=== PATIENT | female | born 1950 | race Caucasian/White ===

== ENCOUNTER 2016-06-16 08:34 | Inpatient (IN) | payer MEDICARE ==
[~2016-06-16] VITALS: Ht 152.4 cm; Wt 81.1 kg
[2016-06-16] MEDS ORDERED: LEVOFLOXACIN/PMX 750MG/150ML 150 ML IVPB ONE (09:00)
[2016-06-16] MEDS ORDERED: methylPREDNISolone SOD SUCC 125 MG/2 ML IVP ONE (09:00)
[2016-06-16] MEDS ORDERED: SODIUM CHLORIDE FLUSH 10ML SYR IVF ONE (09:00)
[2016-06-16] MEDS ORDERED: ACETAMINOPHEN 500 MG TABLET PO ONE (09:00)
[2016-06-16] MEDS ORDERED: LEVOFLOXACIN/PMX 750MG/150ML 150 ML ONE (09:07)
[2016-06-16] MEDS ORDERED: ACETAMINOPHEN 500 MG TABLET ONE (09:07)
[2016-06-16] MEDS ORDERED: methylPREDNISolone SOD SUCC 125 MG/2 ML ONE (09:07)
[2016-06-16] MEDS ORDERED: ALBUTEROL/IPRATROPIUM 2.5MG/0.5MG, 3 ML ONE (09:10)
[2016-06-16 09:18] LABS: HEMOGLOBIN 13.2 g/dL (11.7-16.4)
[2016-06-16 09:34] LABS: BLOOD UREA NITROGEN 10 mg/dL (7-18)
[2016-06-16 09:39] LABS: ASPARTATE AMINO TRANSFERASE 14 U/L (15-37)
[2016-06-16 09:40] LABS: IS PT STATUS REG ER OR PRE ER? YES
[2016-06-16] MEDS ORDERED: ASPI-496 PO (09:47)
[2016-06-16] MEDS ORDERED: AMLO2.5T PO (09:47)
[2016-06-16] MEDS ORDERED: BUDE10.2 IH (09:47)
[2016-06-16] MEDS ORDERED: IPRA12.9 INH (09:47)
[2016-06-16] MEDS ORDERED: ALBU8.5H3 INH (09:47)
[2016-06-16 09:58] LABS: DIFF TOTAL CELLS COUNTED 100 CELL DIFF
[2016-06-16 09:59] LABS: VERIFY COUNTS? YES
[2016-06-16] MEDS: ALBUTEROL/IPRATROPIUM 2.5MG/0.5MG, 3 ML NPPB PRN (12:47)
[2016-06-16 13:07] VITALS: BP 107/65
[2016-06-16] MEDS ORDERED: ACETAMINOPHEN 325 MG TABLET PO PRN (13:30)
[2016-06-16] MEDS ORDERED: LEVOFLOXACIN/PMX 750MG/150ML 150 ML IV SCH (13:30)
[2016-06-16] MEDS ORDERED: ONDANSETRON 2MG/ML, 2ML IVPB PRN (13:30)
[2016-06-16] MEDS ORDERED: PHARMACY MAY ADJ FOR RENAL FX MC PRN (13:30)
[2016-06-16] MEDS: HEPARIN 5,000 UNITS/ML, 1ML INJ SCH ×2 (13:30→20:48)
[2016-06-16] MEDS: ALBUTEROL/IPRATROPIUM 2.5MG/0.5MG, 3 ML NPPB SCH ×3 (14:00→22:50)
[2016-06-16] MEDS: SODIUM CHLORIDE 0.9% 1,000 ML IV SCH ×2 (15:17→20:58)
[2016-06-16] MEDS: FAMOTIDINE 20 MG TABLET PO SCH (15:19)
[2016-06-16 18:30] VITALS: BP 128/73
[2016-06-16 21:49] LABS: RAPID INFLUENZA A Negative (Negative); RAPID INFLUENZA B Negative (Negative)
[2016-06-17] MEDS: ALBUTEROL/IPRATROPIUM 2.5MG/0.5MG, 3 ML NPPB PRN (00:27)
[2016-06-17 01:23] VITALS: BP 121/71
[2016-06-17] MEDS: ALBUTEROL/IPRATROPIUM 2.5MG/0.5MG, 3 ML NPPB SCH ×6 (03:15→22:57)
[2016-06-17] MEDS: SODIUM CHLORIDE 0.9% 1,000 ML IV SCH ×2 (03:52→10:50)
[2016-06-17 05:15] LABS: HEMOGLOBIN 10.9 g/dL (11.7-16.4)
[2016-06-17 05:25] LABS: BLOOD UREA NITROGEN 8 mg/dL (7-18)
[2016-06-17] MEDS: HEPARIN 5,000 UNITS/ML, 1ML INJ SCH ×3 (05:25→20:57)
[2016-06-17 07:10] VITALS: BP 142/80
[2016-06-17] MEDS: ASPIRIN 81 MG TABLET EC PO SCH (08:39)
[2016-06-17] MEDS: AMLODIPINE 2.5 MG TABLET PO SCH (08:40)
[2016-06-17] MEDS: FAMOTIDINE 20 MG TABLET PO SCH ×2 (08:40→21:07)
[2016-06-17 13:31] VITALS: BP 118/69
[2016-06-17 20:00] VITALS: BP 116/68
[2016-06-18 01:28] VITALS: BP 129/66
[2016-06-18] MEDS: HEPARIN 5,000 UNITS/ML, 1ML INJ SCH ×2 (05:15→13:30)
[2016-06-18] MEDS: ALBUTEROL/IPRATROPIUM 2.5MG/0.5MG, 3 ML NPPB SCH ×3 (05:22→14:00)
[2016-06-18 05:49] LABS: HEMOGLOBIN 11.8 g/dL (11.7-16.4)
[2016-06-18 06:14] LABS: ASPARTATE AMINO TRANSFERASE 12 U/L (15-37); BLOOD UREA NITROGEN 7 mg/dL (7-18)
[2016-06-18 07:09] VITALS: BP 116/67
[2016-06-18] MEDS: AMLODIPINE 2.5 MG TABLET PO SCH (08:23)
[2016-06-18] MEDS: FAMOTIDINE 20 MG TABLET PO SCH (08:24)
[2016-06-18] MEDS: ASPIRIN 81 MG TABLET EC PO SCH (08:24)
[2016-06-18] MEDS ORDERED: LEVOFLOXACIN/PMX 750MG/150ML 150 ML IV SCH (09:00)
[2016-06-18] MEDS ORDERED: LEVO500T33 PO (13:14)
[2016-06-18] MEDS ORDERED: SODIUM CHLORIDE 0.9% 1,000 ML IV SCH (13:14)
[2016-06-18] MEDS ORDERED: PRED20TA PO (13:14)
[2016-06-18 13:59] VITALS: BP 138/81
== END 2016-06-18 15:14 | disposition home or self-care (01) | DRG 871 ==
LOC: ED 09:54 → EDIP 09:55 → ED 10:16 → 4WST 12:01 → DCLOUNGE 06-18 15:05
PROVIDERS: ATTEND Internal Medicine
DX: A41.9 Sepsis, unspecified organism (principal); J96.21 Acute and chronic respiratory failure with hypoxia; J15.9 Unspecified bacterial pneumonia; J44.0 Chronic obstructive pulmonary disease with (acute) lower respiratory infection; I10 Essential (primary) hypertension; F17.210 Nicotine dependence, cigarettes, uncomplicated; Z99.81 Dependence on supplemental oxygen
CPT/HCPCS: 36415; 71010; 80048; 80053; 83605; 83880; 84145; 84484; 85025; 85610; 87040; 87400; 93005; 94640; 96365; 96375; J1956; J7620; J2930; J7030; J7512

== ENCOUNTER 2017-02-05 10:42 | Inpatient (IN) | payer MEDICARE ==
[~2017-02-05] VITALS: Ht 152.4 cm; Wt 58.1 kg
[~2017-02-05 10:42] MED LIST: ALBU8.5H8 INH; AMLO2.5T PO; ASPI-496 PO; BUDE10.2 IH; IPRA12.9 INH; LEVO500T47 PO; PRED20TA PO
[2017-02-05] MEDS ORDERED: methylPREDNISolone SOD SUCC 125 MG/2 ML ONE (11:08)
[2017-02-05 11:30] LABS: BLOOD UREA NITROGEN 4 mg/dL (7-18)
[2017-02-05] MEDS ORDERED: methylPREDNISolone SOD SUCC 125 MG/2 ML IVP ONE (11:30)
[2017-02-05] MEDS ORDERED: SODIUM CHLORIDE FLUSH 10ML SYR IVF ONE (11:30)
[2017-02-05 11:35] LABS: ASPARTATE AMINO TRANSFERASE 15 U/L (15-37)
[2017-02-05 11:36] LABS: IS PT STATUS REG ER OR PRE ER? YES
[2017-02-05 11:38] LABS: HEMATOCRIT 38.1 % (34.6-47.8); HEMOGLOBIN 12.5 g/dL (11.7-16.4); WHITE BLOOD COUNT 3.8 x10^3/uL (3.4-10)
[2017-02-05] MEDS ORDERED: ALBUTEROL/IPRATROPIUM 2.5MG/0.5MG, 3 ML ONE (11:57)
[2017-02-05] MEDS ORDERED: MAGNESIUM SULFATE 1 GM in SODIUM CHLORIDE 0.9% 50 ML IV ONE (12:00)
[2017-02-05] MEDS ORDERED: ALBUTEROL/IPRATROPIUM 2.5MG/0.5MG, 3 ML NEB ONE (12:30)
[2017-02-05] MEDS ORDERED: HYDROcodone/APAP 5/325 TABLET PO PRN (13:00)
[2017-02-05] MEDS ORDERED: DOCUSATE 100 MG CAPSULE PO PRN (13:00)
[2017-02-05] MEDS ORDERED: morphine SULFATE 10 MG/ML, 1ML IVPush PRN (13:00)
[2017-02-05] MEDS ORDERED: TEMPLATE NON-FORMULARY MED. (Albuterol Sulfate (Proair Hfa) 2 PUFF(S)) INH PRN (13:00)
[2017-02-05] MEDS ORDERED: ONDANSETRON 2MG/ML, 2ML IVPush PRN (13:00)
[2017-02-05] MEDS ORDERED: IPRATROPIUM BROMIDE INH SCH (13:00)
[2017-02-05] MEDS ORDERED: GUAIFENESIN/DM 200-20MG, 10ML UDC PO PRN (13:00)
[2017-02-05] MEDS: methylPREDNISolone SOD SUCC 125 MG/2 ML IVPush SCH ×2 (13:00→21:21)
[2017-02-05] MEDS ORDERED: POLYETHYLENE GLYCOL 17 GM PACKET PO PRN (13:00)
[2017-02-05] MEDS ORDERED: LORazepam 1MG TABLET PO PRN (13:00)
[2017-02-05] MEDS: NICOTINE 7 MG/24 HR PATCH.TD24 TD SCH (13:00)
[2017-02-05] MEDS ORDERED: ACETAMINOPHEN 325 MG TABLET PO PRN (13:00)
[2017-02-05 14:00] VITALS: BP 151/69
[2017-02-05] MEDS: ALBUTEROL/IPRATROPIUM 2.5MG/0.5MG, 3 ML NPPB SCH ×3 (14:00→22:00)
[2017-02-05] MEDS ORDERED: FLU VACC QS2017-18 (36MOS+) UP/PF 0.5 ML IM-VACC ONE (16:30)
[2017-02-05] MEDS: CEFTRIAXONE PMX 1GM/50ML 50 ML IV SCH (17:00)
[2017-02-05] MEDS: ENOXAPARIN 40 MG/0.4 ML SQ SCH (17:00)
[2017-02-05 19:13] VITALS: BP 116/67
[2017-02-05] MEDS: TEMPLATE NON-FORMULARY MED. (Budesonide/Formoterol Fumarate (Symbicort 160-4.5 Mcg Inhaler IH SCH (21:00)
[2017-02-05] MEDS: SODIUM CHLORIDE FLUSH 10ML SYR IVF SCH (21:00)
[2017-02-05] MEDS: DOXYCYCLINE 100MG TABLET PO SCH (21:20)
[2017-02-05] MEDS ORDERED: IPRATROPIUM 0.5 MG/2.5 ML INHA ONE (22:12)
[2017-02-06 03:43] VITALS: BP 126/66
[2017-02-06] MEDS ORDERED: IPRATROPIUM 0.5 MG/2.5 ML INHA ONE (03:53)
[2017-02-06] MEDS: methylPREDNISolone SOD SUCC 125 MG/2 ML IVPush SCH ×3 (05:05→20:50)
[2017-02-06] MEDS: IPRATROPIUM 0.5 MG/2.5 ML INHA NPPB SCH ×2 (06:30→14:00)
[2017-02-06 07:11] VITALS: BP 120/67
[2017-02-06] MEDS: SENNA/DOCUSATE TABLET PO SCH (09:00)
[2017-02-06] MEDS: FLUTICASONE/VILANTEROL 200-25MCG/INH INH SCH (09:00)
[2017-02-06] MEDS: TEMPLATE NON-FORMULARY MED. (Budesonide/Formoterol Fumarate (Symbicort 160-4.5 Mcg Inhaler IH SCH ×2 (09:00→20:50)
[2017-02-06] MEDS: SODIUM CHLORIDE FLUSH 10ML SYR IVF SCH ×2 (10:54→20:51)
[2017-02-06] MEDS: AMLODIPINE 2.5 MG TABLET PO SCH (10:55)
[2017-02-06] MEDS: ASPIRIN 81 MG TABLET EC PO SCH (10:55)
[2017-02-06] MEDS: DOXYCYCLINE 100MG TABLET PO SCH ×2 (10:55→20:50)
[2017-02-06] MEDS: IPRATROPIUM 0.5 MG/2.5 ML INHA NPPB PRN (11:00)
[2017-02-06 12:18] VITALS: BP 122/72
[2017-02-06] MEDS: NICOTINE 7 MG/24 HR PATCH.TD24 TD SCH (13:00)
[2017-02-06] MEDS: ENOXAPARIN 40 MG/0.4 ML SQ SCH (13:52)
[2017-02-06] MEDS: CEFTRIAXONE PMX 1GM/50ML 50 ML IV SCH (13:52)
[2017-02-06 20:00] VITALS: BP 118/61
[2017-02-07 03:52] VITALS: BP 109/67
[2017-02-07] MEDS: methylPREDNISolone SOD SUCC 125 MG/2 ML IVPush SCH ×3 (05:48→20:18)
[2017-02-07 06:10] LABS: HEMATOCRIT 35.6 % (34.6-47.8); HEMOGLOBIN 11.9 g/dL (11.7-16.4); WHITE BLOOD COUNT 4.2 x10^3/uL (3.4-10)
[2017-02-07 06:21] LABS: BLOOD UREA NITROGEN 12 mg/dL (7-18)
[2017-02-07 07:18] VITALS: BP 119/70
[2017-02-07] MEDS: SENNA/DOCUSATE TABLET PO SCH (08:40)
[2017-02-07] MEDS: TEMPLATE NON-FORMULARY MED. (Budesonide/Formoterol Fumarate (Symbicort 160-4.5 Mcg Inhaler IH SCH ×2 (08:42→20:18)
[2017-02-07] MEDS: SODIUM CHLORIDE FLUSH 10ML SYR IVF SCH ×2 (08:44→20:18)
[2017-02-07] MEDS: DOXYCYCLINE 100MG TABLET PO SCH ×2 (08:45→20:18)
[2017-02-07] MEDS: AMLODIPINE 2.5 MG TABLET PO SCH (08:45)
[2017-02-07] MEDS: ASPIRIN 81 MG TABLET EC PO SCH (08:45)
[2017-02-07] MEDS ORDERED: IPRATROPIUM 0.5 MG/2.5 ML INHA ONE (10:22)
[2017-02-07] MEDS: FLUTICASONE/VILANTEROL 200-25MCG/INH INH SCH (10:28)
[2017-02-07] MEDS: IPRATROPIUM 0.5 MG/2.5 ML INHA NPPB PRN (11:20)
[2017-02-07] MEDS ORDERED: ONDANSETRON 2MG/ML, 2ML ONE (11:36)
[2017-02-07] MEDS: ONDANSETRON 2MG/ML, 2ML IVPush PRN ×2 (11:38→20:32)
[2017-02-07] MEDS: NICOTINE 7 MG/24 HR PATCH.TD24 TD SCH (12:53)
[2017-02-07] MEDS: CEFTRIAXONE PMX 1GM/50ML 50 ML IV SCH (12:58)
[2017-02-07] MEDS: ENOXAPARIN 40 MG/0.4 ML SQ SCH (13:00)
[2017-02-07 14:18] VITALS: BP 108/66
[2017-02-07 19:31] VITALS: BP 124/68
[2017-02-07] MEDS: IPRATROPIUM 0.5 MG/2.5 ML INHA NPPB SCH (20:45)
[2017-02-08 01:41] VITALS: BP 130/79
[2017-02-08 07:25] VITALS: BP 112/64
[2017-02-08] MEDS: AMLODIPINE 2.5 MG TABLET PO SCH (07:53)
[2017-02-08] MEDS: SENNA/DOCUSATE TABLET PO SCH (07:54)
[2017-02-08] MEDS: ASPIRIN 81 MG TABLET EC PO SCH (07:54)
[2017-02-08] MEDS: DOXYCYCLINE 100MG TABLET PO SCH ×2 (07:55→20:27)
[2017-02-08] MEDS: FLUTICASONE/VILANTEROL 200-25MCG/INH INH SCH (07:56)
[2017-02-08] MEDS: SODIUM CHLORIDE FLUSH 10ML SYR IVF SCH ×2 (07:57→20:27)
[2017-02-08] MEDS: TEMPLATE NON-FORMULARY MED. (Budesonide/Formoterol Fumarate (Symbicort 160-4.5 Mcg Inhaler IH SCH ×2 (07:58→20:33)
[2017-02-08] MEDS: methylPREDNISolone SOD SUCC 125 MG/2 ML IVPush SCH ×3 (08:00→23:55)
[2017-02-08] MEDS: IPRATROPIUM 0.5 MG/2.5 ML INHA NPPB SCH ×3 (08:20→20:45)
[2017-02-08 12:50] VITALS: BP 124/72
[2017-02-08] MEDS: NICOTINE 7 MG/24 HR PATCH.TD24 TD SCH (13:00)
[2017-02-08] MEDS: ENOXAPARIN 40 MG/0.4 ML SQ SCH (13:25)
[2017-02-08] MEDS: CEFTRIAXONE PMX 1GM/50ML 50 ML IV SCH (13:38)
[2017-02-08 19:22] VITALS: BP 123/69
[2017-02-09] MEDS: IPRATROPIUM 0.5 MG/2.5 ML INHA NPPB SCH ×2 (03:00→09:00)
[2017-02-09 03:57] VITALS: BP 131/65
[2017-02-09 07:47] VITALS: BP 116/74
[2017-02-09] MEDS: SENNA/DOCUSATE TABLET PO SCH (07:47)
[2017-02-09] MEDS: SODIUM CHLORIDE FLUSH 10ML SYR IVF SCH (07:47)
[2017-02-09] MEDS: ASPIRIN 81 MG TABLET EC PO SCH (07:47)
[2017-02-09] MEDS: TEMPLATE NON-FORMULARY MED. (Budesonide/Formoterol Fumarate (Symbicort 160-4.5 Mcg Inhaler IH SCH (07:47)
[2017-02-09] MEDS: methylPREDNISolone SOD SUCC 125 MG/2 ML IVPush SCH (07:47)
[2017-02-09] MEDS: FLUTICASONE/VILANTEROL 200-25MCG/INH INH SCH (07:47)
[2017-02-09] MEDS: DOXYCYCLINE 100MG TABLET PO SCH (07:48)
[2017-02-09] MEDS: AMLODIPINE 2.5 MG TABLET PO SCH (07:48)
[2017-02-09] MEDS ORDERED: BUDE10.2 IH (08:54)
[2017-02-09] MEDS ORDERED: IPRA12.9 INH (08:54)
[2017-02-09] MEDS ORDERED: DOXY100T PO (08:54)
[2017-02-09] MEDS ORDERED: ALBU8.5H8 INH (08:54)
[2017-02-09] MEDS: NICOTINE 7 MG/24 HR PATCH.TD24 TD SCH (12:37)
[2017-02-09] MEDS: CEFTRIAXONE PMX 1GM/50ML 50 ML IV SCH (12:55)
[2017-02-09] MEDS: ENOXAPARIN 40 MG/0.4 ML SQ SCH (12:58)
[2017-02-09 14:10] VITALS: BP 126/74
[2017-02-09] MEDS ORDERED: PRED20TA PO (15:57)
[2017-02-09] MEDS ORDERED: PRED50TA PO (15:58)
== END 2017-02-09 16:00 | disposition home or self-care (01) | DRG 189 ==
LOC: ED 11:49 → EDIP 12:31 → SUATTDRO 12:46 → 3NE 13:22
PROVIDERS: ADMIT Internal Medicine; ATTEND Internal Medicine
DX: J96.21 Acute and chronic respiratory failure with hypoxia (principal); J44.1 Chronic obstructive pulmonary disease with (acute) exacerbation; Z99.81 Dependence on supplemental oxygen; F17.200 Nicotine dependence, unspecified, uncomplicated; Z66 Do not resuscitate; I10 Essential (primary) hypertension; Z82.49 Family history of ischemic heart disease and other diseases of the circulatory system; Z83.3 Family history of diabetes mellitus; Z87.01 Personal history of pneumonia (recurrent)
CPT/HCPCS: 36415; 71010; 80048; 80053; 83605; 83880; 84484; 85025; 90686; 93005; 94640; 96374; J0696; J1650; J2405; J3475; J7620; J7644; J2930